=== PATIENT | male | born 1970 ===

== ENCOUNTER 2025-07-09 07:47 | Outpatient (CLI) | payer MEDICAID, SELFPAY ==
--- NOTE | 2025-07-09 07:52 | MR_ITS ---
WS: [id number] MRI LEFT SHOULDER NONCONTRAST TECHNIQUE: Sagittal T2, coronal T1, T2 and proton density imaging. Axial gradient PDE imaging. CLINICAL INFORMATION: TEAR OF L ROTATOR CUFF COMPARISON: None. FINDINGS: Moderate degenerative arthritis AC joint with fluid and edema. Mild downsloping acromion with subacromial spurring. Tendinopathy supraspinatus. Tiny insertional tear distal supraspinatus. Tendinopathy infraspinatus which appears intact. Normal teres minor. Normal subscapularis tendon. Biceps tendon appears intact within the bicipital groove. Intra-articular biceps tendon appears intact. Mild to moderate degenerative narrowing of the glenohumeral articulation. Normal bone marrow signal in the humerus and glenoid. MR/MR shoulder LT wo con* [id number] IMPRESSION: 1. Moderate degenerative arthritis AC joint with fluid and edema. Slight subac romial spurring. 2. Tendinopathy supraspinatus and infraspinatus. 3. Tiny insertional tear distal supraspinatus. 4. Rotator cuff is otherwise normal. 5. Biceps tendon appears intact within the bicipital groove. Normal intra-brenna cular biceps tendon. 6. No other acute findings.
== END 2025-07-09 07:48 | disposition home or self-care (01) ==
LOC: RAD 07:48
PROVIDERS: PCP Nurse Practitioner Family; Visit Provider Family Medicine
DX: M75.102 Unspecified rotator cuff tear or rupture of left shoulder, not specified as traumatic (principal)
CPT/HCPCS: 73221

== ENCOUNTER 2025-08-11 06:30 | Outpatient (RCR) | payer MEDICAID, SELFPAY | END 2025-09-09 23:59 | disposition home or self-care (01) | LOC: SPT 06:30 | PROVIDERS: Visit Provider Family Medicine | DX: M25.519 Pain in unspecified shoulder (principal); G89.29 Other chronic pain | CPT/HCPCS: 97110; 97161 ==

== ENCOUNTER 2025-08-20 08:55 | Outpatient (CLI) | payer MEDICAID, SELFPAY | END 2025-08-20 08:56 | disposition home or self-care (01) | LOC: SLEEP 08:58 | PROVIDERS: Referring Provider Family Medicine; Visit Provider Internal Medicine Pulmonary Disease | DX: G47.33 Obstructive sleep apnea (adult) (pediatric) (principal) | CPT/HCPCS: G0399 ==